=== PATIENT | male | born 1970 | race Caucasian/White ===

== ENCOUNTER 2016-10-11 17:31 | Emergency (ER) | payer OTHER | END 2016-10-11 20:15 | disposition left against medical advice (07) | LOC: ER1 17:31 | DX: Z53.21 Procedure and treatment not carried out due to patient leaving prior to being seen by health care provider (principal) ==

== ENCOUNTER → 2016-11-10 | Outpatient (CLI) | payer OTHER ==
[2016-11-10 11:21] LABS: HEMOGLOBIN 14.7 gm/dl (14.0-17.5); RED BLOOD COUNT 4.81 M/UL (4.20-5.50)
[2016-11-10 11:45] LABS: BUN/CREATININE RATIO 19 (0-10)
== END ==
LOC: LAB 10:21
PROVIDERS: Nurse Practitioner
DX: Z12.5 Encounter for screening for malignant neoplasm of prostate (principal); M54.9 Dorsalgia, unspecified; E11.9 Type 2 diabetes mellitus without complications; R53.83 Other fatigue
CPT/HCPCS: 36415; 80053; 80061; 83036; 84153; 84436; 84443; 84480; 85025

== ENCOUNTER → 2017-01-10 | Outpatient (CLI) | payer OTHER | LOC: RAD 12:25 | DX: M25.562 Pain in left knee (principal) | CPT/HCPCS: 73564 ==

== ENCOUNTER → 2020-10-03 | Outpatient (CLI) | payer OTHER ==
[~2020-10-03] MED LIST: IBU800 MG PO
== END ==
LOC: MRI 09-24 11:00 → EMI 09-24 13:00 → MRI 13:49
DX: R94.02 Abnormal brain scan (principal); G44.89 Other headache syndrome; G43.009 Migraine without aura, not intractable, without status migrainosus
CPT/HCPCS: 70551

== ENCOUNTER 2021-05-22 15:36 | Emergency (ER) | payer OTHER ==
[2021-05-22 18:24] LABS: HEMOGLOBIN 15.4 gm/dl (14.0-17.5); RED BLOOD COUNT 4.92 M/UL (4.20-5.50); WHITE BLOOD COUNT 8.8 K/UL (4.5-11.0)
[2021-05-22 18:53] LABS: BUN/CREATININE RATIO 14 (0-10)
[2021-05-22] MEDS ORDERED: METRONIDAZOLE500 MG PO (21:28)
== END 2021-05-22 22:07 | disposition home or self-care (01) ==
LOC: ER1 15:36
PROVIDERS: Physician Assistant
DX: K61.1 Rectal abscess (principal); F17.200 Nicotine dependence, unspecified, uncomplicated
CPT/HCPCS: 80053; 83605; 85025; 87040; 96374; 96375; 99283; J1885; J7030; Q9967

== ENCOUNTER → 2021-06-18 | Day surgery (SDC) | payer OTHER ==
[~2021-06-18] MED LIST changes: +METRONIDAZOLE500 MG PO
== END | disposition home or self-care (01) ==
LOC: OR 07:56
DX: K64.9 Unspecified hemorrhoids (principal); F31.9 Bipolar disorder, unspecified; M19.90 Unspecified osteoarthritis, unspecified site; G43.009 Migraine without aura, not intractable, without status migrainosus; M51.36 Other intervertebral disc degeneration, lumbar region; K21.9 Gastro-esophageal reflux disease without esophagitis; F17.210 Nicotine dependence, cigarettes, uncomplicated; Z88.0 Allergy status to penicillin
CPT/HCPCS: J1100; J2001; J2250; J2405; J2704; J3010; J7120